=== PATIENT | male | born 1970 | race Caucasian/White ===

== ENCOUNTER 2016-07-27 10:43 | Emergency (ER) | payer OTHER ==
[~2016-07-27] VITALS: Ht 177.8 cm; Wt 75.0 kg
[2016-07-27 10:54] VITALS: BP 180/102; PULSE 131; RESP 15; O2SAT 96
--- NOTE | 2016-07-27 11:58 | ED.REPORT ---
HPI-Extremity Problem Upper Date of Service Jul 27, 2016 ED Provider: Dean Preston PA-C Everette is an otherwise healthy and left hand dominant 45-year-old male who presents with chief complaint of abrasions to his right hand. Patient states he suffered the abrasions shortly before presentation when he was wrestling with a person who broke a window at his workplace. Patient states he washed thoroughly and applied triple antibiotic ointment before presenting. He believes is up-to-date on his tetanus shot though he is unsure whether it was within the last 5 years or not. He denies limited range of motion, excessive pain, numbness tingling in the affected hand. Denies bleeding or clotting disorders, anticoagulant use. Denies any other injuries Nursing Notes Stated Complaint: HAND LACERATIONS L AND I Chief Complaint: Laceration Nursing Notes Reviewed: Yes Allergies: Coded Allergies: cefuroxime (Verified Adverse Reaction, Intermediate, 07/27/16) General Time Seen by MD: 11:00 Chief Complaint Hand injury right Past Medical History Past Medical History Notes: Denies Review of Systems Review of Systems Note: Negative unless stated otherwise in history of present illness Physical Exam General: Well appearing, well developed, well nourished, no acute distress. Head: Atraumatic, normocephalic. Right hand: Clean, superficial abrasions on the dorsal aspect of digits 2 through 5. Brisk capillary refill and sensation intact distal to injuries. Full strength and range of motion in wrist, MCP and PIP and DIP joints. Cardiovascular: Regular rhythm with a rate of 100 bpm Eyes: No scleral icterus or injection. No discharge. Vision grossly intact. ENT: Voice clear, hearing grossly intact. Skin: Warm and dry. Neurological: Grossly nonfocal. Psychological: alert and oriented. Speech appropriate, linear and logical. Behavior appropriate. Initial Vital Signs Vital Signs (First) Date Time Temp Pulse Resp B/P Pulse Ox O2 Delivery O2 Flow Rate FiO2 07/27/16 10:54 37.2 131 15 180/102 96 Room Air Pulse measured to be approximately 100 bpm by TEMI Preston Initial VS: Reviewed, Vital signs abnormal (elevated BP, tachycardia) Procedures Procedure Notes: Abrasion abrasions on the dorsal aspect of digits 2 through 4 of the right hand, cleaned with normal saline, bacitracin and dressings applied. Patient tolerated the procedure well. Re-Eval/Medical Decision Med Decision/Clinical Course Otherwise healthy 45-year-old male presents with abrasions to the fingers of his right hand. Physical exam is benign, patient appears to have cared for the abrasions well prior to presentation. Further cleansed with normal saline, bacitracin applied, dressing applied. Discussed tetanus shot with the patient. He believes he is up-to-date, but is unsure if he had a shot in the last 5 years. I asked that he follow-up with his primary care physician on this point and get a booster if he has not in the last 5 years. Patient agrees to this point and appears reliable. Counseled vigilance for signs of infection, primary care follow-up, return precautions Discharge & Departure Impression: Primary Impression: Abrasion hand Disposition: Home Discharge Condition All VS Reviewed: Yes Condition: Stable Patient Instructions: Abrasion (ED) Additional Instructions: Evaluation for right hand abrasions in the ED. Physical reveals superficial abrasions on digits 2 through 4 of the right hand, which appear to hear quite well for prior to presentation emergency department. We washed them out more in the department and applied dressings. Strength and range of motion are intact in all joints of the affected hand, all fingers have good circulation and sensation. I could find no point bony tenderness. I see no indication perform x-rays. I suggest he keep the wounds covered and dry for the next 24 hours. After that you can remove the dressings, wash with soap and water and reapply antibiotic ointment and dressings. Be vigilant for signs of infection including fever, increasing pain, redness, or the appearance of pus. Follow up with your primary care provider if you notice the beginnings of infection or if the wounds are not healing well in one week. Return to the emergency department for any new or worsening symptoms. We incidentally noted that you have elevated blood pressure. This appears to be asymptomatic based on history. Continue to monitor your blood pressure at home, and discuss your findings with your primary care physician. Referrals: Damian De La Rosa MD (PCP) EDSupervising Provider for APC: Donny Arcos DO copies to: Damian De La Rosa MD, Seth PA-C Jul 27, 2016 11:58
[2016-07-27 12:17] VITALS: BP 132/89; PULSE 91; RESP 16; O2SAT 96
[2016-09-01] MEDS ORDERED: HYDR50TA76 PO (16:22)
[2016-09-01] MEDS ORDERED: OXYC-474 PO (16:22)
[2016-09-01] MEDS ORDERED: ZOLP10TA5 PO (16:22)
[2016-09-01] MEDS ORDERED: CLON0.1T PO (16:22)
[2016-09-01] MEDS ORDERED: TAMS0.4C98 PO (16:22)
[2016-09-01] MEDS ORDERED: RANI150C4 PO (16:22)
[2016-09-01] MEDS ORDERED: KLO5T PO (16:22)
[2016-09-01] MEDS ORDERED: SIME80TA53 PO (16:44)
[2016-09-01] MEDS ORDERED: CYAN50008 PO (16:44)
[2016-09-01] MEDS ORDERED: CETI10CA PO (16:44)
== END 2016-07-27 11:58 | disposition home or self-care (01) ==
LOC: SED 10:54
DX: S60.511A Abrasion of right hand, initial encounter (principal); W50.0XXA Accidental hit or strike by another person, initial encounter; Y92.59 Other trade areas as the place of occurrence of the external cause; Y93.72 Activity, wrestling; Y99.0 Civilian activity done for income or pay; Z88.1 Allergy status to other antibiotic agents

== ENCOUNTER 2016-09-04 09:25 | Day surgery (SDC) | payer OTHER ==
[~2016-09-04] VITALS: Ht 177.8 cm; Wt 75.0 kg
[~2016-09-04 09:25] MED LIST: CETI10CA PO; CYAN50008 PO; SIME80TA53 PO; Sodium Chloride LOK Flush 10 mL Syringe IV PRN; fentaNYL-PF 50 mCg/mL 2 mL Inj IVPUSH PRN
[2016-09-04 09:48] VITALS: BP 122/82; PULSE 111; RESP 16; O2SAT 97
[2016-09-04] MEDS: 0.9% Sodium Chloride 1,000 ML IV SCH ×2 (10:19→11:21)
[2016-09-04 10:59] VITALS: BP 94/56; PULSE 99; RESP 16; O2SAT 99
[2016-09-04 11:09] VITALS: BP 96/56; PULSE 104; RESP 16; O2SAT 98
--- NOTE | 2016-09-04 23:17 | ENDO ---
[address] [address] ENDOSCOPY PROCEDURE PATIENT: EVELYN DELAROSA : 1970 MR#: [id number] ADMIT: 09/04/2016 JOB ID: [id number] DATE OF PROCEDURE: 09/04/2016 PROCEDURE: Colonoscopy and ileoscopy with biopsy. INDICATIONS: A 46-year-old male with longstanding altered bowel habit of uncertain etiology. EQUIPMENT: PCF-H180AL. SEDATION: 1. Versed 7 mg. 2. Fentanyl 125 mcg. BOWEL PREPARATION: Excellent. COMPLICATIONS: None identified. PROCEDURE INFORMATION: After the risks and benefits were explained, written and verbal informed consent was obtained. The patient was brought into the endoscopy suite and placed into the left lateral decubitus position. Sedation was achieved as above. A digital rectal examination accomplished. No pathology appreciated. The scope was introduced into the rectum and advanced under direct visualization to the level of the cecum, as identified by the appendiceal orifice and ileocecal valve. The terminal ileum was briefly accessed. The scope then slowly withdrawn to carefully examine the mucosa for any defects or lesions. Multiple direct views were made through the dentate line for exclusion of pathology. The colon was decompressed. The scope was removed from the patient who tolerated the procedure well. FINDINGS: There was absolutely no evidence of any macroscopic colitis throughout. No proctitis. No significant polyps or mass lesions throughout. The terminal ileum appeared to have a macronodular appearance and this, although did not exhibit obvious erosion or inflammation, was biopsied to exclude any element of occult chronic IBD. ENDOSCOPIC DIAGNOSES: 1. Await histopathology. 2. Continue Culturelle (this has already helped quite dramatically). 3. Depending on clinical response, may need to consider capsule endoscopy. Follow up my office in about four weeks. 4. Consider repeat colonoscopy after age 50 for initiation of routine colon cancer screening.
--- NOTE | 2016-09-05 14:30 | PATH ---
SURGICAL PATHOLOGY Attending Physician:Arianna Wynne CASE STATUS: Signed Out PATIENT NAME: EVELYN DELAROSA PID: [id number] : 1970 DATE COLLECTED:09/04/2016 16:31 SPECIMEN: Ileum, Biopsy CLINICAL HISTORY: 1).TERMINAL ILEUM BIOPSY FINAL DIAGNOSIS: 1.TERMINAL ILEUM BIOPSY: ILEAL MUCOSA WITH NO DIAGNOSTIC ALTERATIONS. Negative for inflammation, granulomas, dysplasia and malignancy. ICD10 code R10.9 GROSS DESCRIPTION: Received in formalin, labeled with the patient' s name and "TI BX", are two fragments of gaspar, soft tissue ranging in size from 0.1 x 0.1 x 0.1 cm to 0.2 x 0.1 x 0.1 cm. All fragments are totally submitted in one cassette. ([id number]) MICRO DESCRIPTION: See diagnosis. ICD-9 CODES: CPT CODES: 1: 82985 Electronically Signed Out Adina Keenan MD [facility] [address], [place] [address] Technical component performed at [facility], [facility] [address], [place], [address]
== END 2016-09-04 23:59 | disposition home or self-care (01) ==
LOC: END 09:25
PROVIDERS: ATTEND Internal Medicine Gastroenterology
DX: R19.4 Change in bowel habit (principal)
CPT/HCPCS: 45380; 99153; G0500; J2250; J3010; J7030